=== PATIENT | female | born 1960 | race Caucasian/White ===

== ENCOUNTER 2017-05-26 15:33 | Emergency (ER) | payer OTHER, SELFPAY ==
[2017-05-26 15:50] VITALS: BP 140/81; PULSE 83; RESP 20; TEMP 36.6; O2SAT 98; BMI 22.6
--- NOTE | 2017-05-26 16:18 | HMH.EDUTC ---
[facility] – [place] Disposition Clinical Impression: Strain of left hip Qualifiers: Encounter type: initial encounter Qualified Code(s): S76.012A - Strain of muscle, fascia and tendon of left hip, initial encounter Fall from slipping on wet surface Qualifiers: Encounter type: initial encounter Qualified Code(s): W01.0XXA - Fall on same level from slipping, tripping and stumbling without subsequent striking against object, initial encounter Disposition: Home, Self-Care Condition on Discharge: Good Instructions: How To Perform RICE (Rest, Ice, Compress, Elevate) Additional Instructions: Follow Restrictions listed on workman's comp form Naproxen as needed for pain. No additional ibuprofen, motrin, aleve, naproxen, advil with that amount of naproxen. You can take tylenol if your primary care has said it is ok. Hip Strains A hip strain occurs when one of the muscles supporting the hip joint is stretched beyond its limit or torn. Strains may be mild, moderate, or severe, depending on the extent of the injury. A severe strain can limit your ability to move your hip. Anyone can experience a hip strain just doing everyday tasks, but strains most often occur during sports activities. Although many hip strains improve with simple home treatment, severe strains may require physical therapy or other medical treatment. Description The large bones that make up the hip jointthe femur (thighbone) and the pelvisserve as anchors for several muscles. Some of these muscles move across the abdomen or the buttocks (hip flexors, gluteals). Others move down the thigh to the knee (abductors, adductors, quadriceps, hamstrings). The lower abdominal muscles and hip flexor muscles are often involved in a hip strain. Reproduced from JUVENAL Browne, ed: Essentials of Musculoskeletal Care, ed 4. [place], [place], [employer], 2010. In a hip strain, muscles and tendons may be injured. Tendons are the tough, fibrous tissues that connect muscles to bones. Hip strains frequently occur near the point where the muscle joins the connective tissue of the tendon. The strain may be a simple stretch in your muscle or tendon, or it may be a partial or complete tear of muscle fibers or of the muscle and tendon combination. Once the muscle is injured, it becomes vulnerable to reinjury. Repeated strains in muscles about the hip and pelvis may be associated with athletic pubalgia (also called sports hernia). A sports hernia is a strain or tear of any soft tissue (muscle, tendon, ligament) in the lower abdomen or groin area. This condition is discussed in Sports Hernia (Athletic Pubalgia). The lower abdominal muscles and hip flexor muscles are often involved in a hip strain. Reproduced from JUVENAL Browne, ed: Essentials of Musculoskeletal Care, ed 4. [place], [employer], 2010. Cause A hip strain can be an acute injurymeaning that it occurs suddenly, such as from a fall or a direct blow during contact sports. Hip strains are also caused by overusewhen the muscle or tendon has slowly become weakened over time by repetitive movements. Factors that put you at greater risk for a hip strain include: Prior injury in the same area Muscle tightness Failure to warm up properly before exercising Attempting to do too much, too quickly, when you exercise Symptoms A muscle strain causes pain and tenderness in the injured area. Other symptoms may include: Increased pain when you use the muscle Swelling Limited range of motion Muscle weakness Home Remedies Many hip strains will improve with simple home treatment. Mild strains can be treated with the RICE protocol. RICE stands for rest, ice, compression, and elevation. Rest. Avoid activities that put weight on the hip for the first few days after the injury. Ice. Apply ice immediately after the injury to keep the swelling down. Use cold packs for 20 minutes at a time, several times a day. Do not apply ice directly o
--- NOTE | 2017-05-26 16:25 | XR_ITS ---
EXAM: XR lumbar spine 2-3V HISTORY: Post traumatic pain ITS.REASON: fall ORDERING PHYSICIAN: Inga Victoria PATIENT AGE: 56 years COMPARISON: None FINDINGS: Normal alignment. No fracture or dislocation. No lytic or blastic change. No significant degenerative change. The disc spaces are preserved. IMPRESSION: No acute finding
--- NOTE | 2017-05-26 16:25 | XR_ITS ---
XR sacrum coccyx min 2V CLINICAL INDICATION: Posttraumatic pain ITS.REASON: fall ORDERING PHYSICIAN: Inga Victoria PATIENT AGE: 56 years COMPARISON: None FINDINGS: No fracture or dislocation IMPRESSION: Negative sacrum/coccyx
--- NOTE | 2017-05-26 16:25 | XR_ITS ---
XR hip LT 2-3V w/pelvis HISTORY: Posttraumatic pain ITS.REASON: fall ORDERING PHYSICIAN: Inga Victoria PATIENT AGE: 56 years COMPARISON: None FINDINGS: No fracture or dislocation is evident. There are mild osteoarthritic changes of the hips with osteophyte formation at the acetabulum. IMPRESSION: No acute fracture, mild osteoarthritis
--- NOTE | 2017-05-26 16:25 | ED_ITS ---
[facility] [place] Clinical Impression: Strain of left hip Qualifiers: Encounter type: initial encounter Qualified Code(s): S76.012A - Strain of muscle, fascia and tendon of left hip, initial encounter Fall from slipping on wet surface Qualifiers: Encounter type: initial encounter Qualified Code(s): W01.0XXA - Fall on same level from slipping, tripping and stumbling without subsequent striking against object, initial encounter Disposition: Home, Self-Care Condition on Discharge: Good Instructions: How To Perform RICE (Rest, Ice, Compress, Elevate) Additional Instructions: Follow Restrictions listed on workman's comp form Naproxen as needed for pain. No additional ibuprofen, motrin, aleve, naproxen, advil with that amount of naproxen. You can take tylenol if your primary care has said it is ok. Hip Strains A hip strain occurs when one of the muscles supporting the hip joint is stretched beyond its limit or torn. Strains may be mild, moderate, or severe, depending on the extent of the injury. A severe strain can limit your ability to move your hip. Anyone can experience a hip strain just doing everyday tasks, but strains most often occur during sports activities. Although many hip strains improve with simple home treatment, severe strains may require physical therapy or other medical treatment. Description The large bones that make up the hip joint?the femur (thighbone) and the pelvis? serve as anchors for several muscles. Some of these muscles move across the abdomen or the buttocks (hip flexors, gluteals). Others move down the thigh to the knee (abductors, adductors, quadriceps, hamstrings). The lower abdominal muscles and hip flexor muscles are often involved in a hip strain. Reproduced from JUVENAL Browne, ed: Essentials of Musculoskeletal Care, ed 4. [place], [place], [employer], 2010. In a hip strain, muscles and tendons may be injured. Tendons are the tough, fibrous tissues that connect muscles to bones. Hip strains frequently occur near the point where the muscle joins the connective tissue of the tendon. The strain may be a simple stretch in your muscle or tendon, or it may be a partial or complete tear of muscle fibers or of the muscle and tendon combination. Once the muscle is injured, it becomes vulnerable to reinjury. Repeated strains in muscles about the hip and pelvis may be associated with athletic pubalgia ( also called sports hernia). A sports hernia is a strain or tear of any soft tissue (muscle, tendon, ligament) in the lower abdomen or groin area. This condition is discussed in Sports Hernia (Athletic Pubalgia). The lower abdominal muscles and hip flexor muscles are often involved in a hip strain. Reproduced from JUVENAL Browne, ed: Essentials of Musculoskeletal Care, ed 4. [place], [place], [employer], 2010. Cause A hip strain can be an acute injury?meaning that it occurs suddenly, such as from a fall or a direct blow during contact sports. Hip strains are also caused by overuse?when the muscle or tendon has slowly become weakened over time by repetitive movements. Factors that put you at greater risk for a hip strain include: * Prior injury in the same area * Muscle tightness * Failure to warm up properly before exercising * Attempting to do too much, too quickly, when you exercise Symptoms A muscle strain causes pain and tenderness in the injured area. Other symptoms may include: * Increased pain when you use the muscle * Swelling * Limited range of motion * Muscle weakness Home Remedies Many hip strains will improve with simple home treatment. Mild strains can be treated with the MARIBELL turnero
== END 2017-05-26 18:19 | disposition home or self-care (01) ==
PROVIDERS: Emergency Provider Nurse Practitioner Family; Family Provider Family Medicine; PCP Family Medicine
DX: S76.012A Strain of muscle, fascia and tendon of left hip, initial encounter (principal); W01.0XXA Fall on same level from slipping, tripping and stumbling without subsequent striking against object, initial encounter; Y92.69 Other specified industrial and construction area as the place of occurrence of the external cause; Y99.0 Civilian activity done for income or pay
CPT/HCPCS: 72100; 72220; 73502; 99202; 99282

== ENCOUNTER → 2018-03-28 09:23 | Outpatient (POV) | payer MEDICARE, SELFPAY | PROVIDERS: Visit Provider Nurse Practitioner Acute Care | DX: Z00.00 Encounter for general adult medical examination without abnormal findings (principal) ==

== ENCOUNTER 2018-12-12 15:06 | Outpatient (RCR) | payer MEDICARE, SELFPAY | END 2019-01-30 13:53 | disposition home or self-care (01) | LOC: PT 15:06 | DX: C34.90 Malignant neoplasm of unspecified part of unspecified bronchus or lung (principal); J44.9 Chronic obstructive pulmonary disease, unspecified; R06.02 Shortness of breath | CPT/HCPCS: G0237; G0238; G0239 ==

== ENCOUNTER → 2019-01-27 11:28 | Outpatient (CLI) | payer MEDICARE, SELFPAY ==
--- NOTE | 2019-01-27 11:39 | XR_ITS ---
PROCEDURE: XR SACROILIAC JOINT BI MIN 3V CLINICAL INDICATION: HIP PAIN COMPARISON: No exams were available for comparison FINDINGS: An AP view of the pelvis and oblique views of both SI joints were obtained. Both SI joints appear normal. IMPRESSION: No acute findings. Dictated by: Dr. Deshawn Clemons MD 01/27/2019 13:[address] Deshawn Clemons MD in [place] 01/27/2019 13:33
--- NOTE | 2019-01-27 11:39 | XR_ITS ---
PROCEDURE: XR HIP RT 2-3V W/PELVIS CLINICAL INDICATION: RT HIP PAIN COMPARISON: HIPCMLT XR hip LT 2-3V w/pelvis from 05/26/2017 FINDINGS: No fracture or dislocation is evident. No significant degenerative change. No lytic or blastic change. Unremarkable soft tissues. The SI joints appear normal. IMPRESSION: No acute findings. Dictated by: Dr. Deshawn Clemons MD 01/27/2019 13:[address] Deshawn Clemons MD in [place] 01/27/2019 13:30
--- NOTE | 2019-01-27 11:39 | XR_ITS ---
PROCEDURE: XR MULTIPLE SPINE 4-5V CLINICAL INDICATION: THORACIC BACK PAIN COMPARISON: No exams were available for comparison FINDINGS: AP and lateral films of the thoracic spine show normal curvature and alignment. All thoracic vertebrae appear intact and disc spaces are well maintained. The pedicles are intact and there is no paraspinal mass. AP and lateral films lumbar spine show slightly accentuated lordotic curvature. There is very minor levo scoliotic curvature between T11 and L5. The lumbar vertebrae appear intact and disc spaces are normal throughout. The SI joints are normal. IMPRESSION: No acute findings. Dictated by: Dr. Deshawn Clemons MD 01/27/2019 13:[address] Deshawn Clemons MD in [place] 01/27/2019 13:33
--- NOTE | 2019-01-27 11:39 | XR_ITS ---
PROCEDURE: XR HIP LT 2-3V W/PELVIS CLINICAL INDICATION: LT HIP PAIN COMPARISON: HIPCMLT XR hip LT 2-3V w/pelvis from 05/26/2017 FINDINGS: No fracture or dislocation is evident. No significant degenerative change. No lytic or blastic change. Unremarkable soft tissues. The SI joints and symphysis pubis appear normal. IMPRESSION: No acute findings. Dictated by: Dr. Deshawn Clemons MD 01/27/2019 13:[address] Deshawn Clemons MD in [place] 01/27/2019 13:31
== END ==
PROVIDERS: PCP Nurse Practitioner Family; Visit Provider Nurse Practitioner Family
DX: M25.552 Pain in left hip (principal); M25.551 Pain in right hip; M54.6 Pain in thoracic spine; M54.5 Low back pain
CPT/HCPCS: 72083; 72202; 73502

== ENCOUNTER → 2019-03-06 14:52 | Outpatient (POV) | payer MEDICARE, SELFPAY ==
[2019-03-06 15:09] VITALS: BP 126/69; PULSE 95; RESP 18; O2SAT 99; BMI 24.7
--- NOTE | 2019-03-07 08:24 | HMH.PMCON ---
Assessment and Plan (1) Fibromyalgia Current visit: Yes Status: Chronic Category: Medical Code(s): M79.7 - Fibromyalgia (2) Sacroiliitis Current visit: Yes Status: Chronic Category: Medical Code(s): M46.1 - Sacroiliitis, not elsewhere classified (3) Back pain Current visit: Yes Status: Chronic Category: Medical Code(s): M54.9 - Dorsalgia, unspecified - Assessment and plan all Dx Assessment and Plan for all problems:: Patient and I discussed utilizing anti-inflammatories with stomach protectant. She is interested in this. Patient and I also discussed an SI joint belt. Also set her up for bilateral SI joint injections. I do believe given her symptomology that this would be beneficial for her. Patient is continuing her home stretching program and continuing to try to stay as active as possible. Patient is failed over 6 months of conservative treatments. Dr. Teresa has reviewed this note and agrees with this plan of care. This note was dictated using voice recognition software and may contain errors or omissions HPI - Data of Consult Consult date: 03/06/19 Requesting Physician: Kay Hemphill APRN Primary Care Provider: Bruno Kline - Consult Narrative Reason for consult: Generalized pain, low back pain History of present illness: Ms. Combs is a 58 year old female who presents today for consultation in regards to her pain. Patient rates her pain today a 7 out of 10. She states the pain is achy in nature. Patient has had pain for many years. She is been diagnosed with fibromyalgia in the past. She is continuing to try to work a part-time job and she is finding this more more difficult. Today her main pain complaint is her low back radiating into her groin area and down to her knees. Patient and I discussed starting with treatment of this pain and then moving on to work on some of her other pain patient is tried multiple years of medication with no success. She was on anti-inflammatories. Patient developed stomach issues after this. But she stated that it was beneficial for her. She has not had any injective therapy. She is continuing a home stretching program. CC: Kay Hemphill APRN [facility] History I have reviewed the patient's past medical history: Yes Medical History: Reports:: Anxiety, Chronic Obstructive Pulmonary Disease (COPD), Depression Denies:: Cancer, Diabetes Mellitus Type 1, Diabetes Mellitus Type 2, Hypertension, Internal Pacemaker, Lung Disease, MRSA, Seizures *Have you ever received a pneumonia vaccine?: Yes *Have you received a flu vaccine this season?: Yes Other Surgeries: Yes: No Previous Surgery, Hysterectomy-Total, Other. No: Pacemaker Amputation: No Fractures: No - *Social History Smoking Status: Current every day smoker Tobacco Type: cigarettes # Packs/Day (cigarettes): 1 Alcohol Intake: never Substance Use Type: denies use *Occupational Status:: employed Housing: house Household Members: family, none *Travel in the last 8 weeks: None - Psychiatric History Pschychiatric History:: Reports:: Anxiety, Depression Family Hx:: Cancer, Diabetes, Stroke, Hypertension Review of Systems - Review of Systems ROS General: no recent weight change, no fever, no sleep disturbances Respiratory: no cough, no shortness of air, no recurring pulmonary infections Cardiovascular/Peripheral Vascular: No chest pain, No palpitations, no edema, no shortness of breath. Gastrointestinal: no new onset incontinence, normal bowel movements reported Genitourinary: no new onset incontinence Musculoskeletal: Back pain, SI joint pain, generalized pain Psychiatric: normal mood/ affect, Neurological: [denies new onset weakness in extremities], [denies new onset balance issues] Meds Home Medications Medication Instructions Recorded Confirmed Type Alendronate Sodium [Fosamax] 70 mg PO WEEKLY 05/06/18 02/27/19 History Cholecalciferol (Vitamin D3) 2,000 unit PO PHAN
--- NOTE | 2019-03-07 08:27 | P.CONS_ITS ---
Assessment and Plan (1) Fibromyalgia Current visit: Yes Status: Chronic Category: Medical Code(s): M79.7 - Fibromyalgia (2) Sacroiliitis Current visit: Yes Status: Chronic Category: Medical Code(s): M46.1 - Sacroiliitis, not elsewhere classified (3) Back pain Current visit: Yes Status: Chronic Category: Medical Code(s): M54.9 - Dorsalgia, unspecified - Assessment and plan all Dx Assessment and Plan for all problems:: Patient and I discussed utilizing anti-inflammatories with stomach protectant. She is interested in this. Patient and I also discussed an SI joint belt. Also set her up for bilateral SI joint injections. I do believe given her symptomology that this would be beneficial for her. Patient is continuing her home stretching program and continuing to try to stay as active as possible. Patient is failed over 6 months of conservative treatments. Dr. Teresa has reviewed this note and agrees with this plan of care. This note was dictated using voice recognition software and may contain errors or omissions HPI - Data of Consult Consult date: 03/06/19 Requesting Physician: Kay Hemphill APRN Primary Care Provider: Bruno Kline - Consult Narrative Reason for consult: Generalized pain, low back pain History of present illness: Ms. Combs is a 58 year old female who presents today for consultation in regards to her pain. Patient rates her pain today a 7 out of 10. She states the pain is achy in nature. Patient has had pain for many years. She is been diagnosed with fibromyalgia in the past. She is continuing to try to work a part-time job and she is finding this more more difficult. Today her main pain complaint is her low back radiating into her groin area and down to her knees. Patient and I discussed starting with treatment of this pain and then moving on to work on some of her other pain patient is tried multiple years of medication with no success. She was on anti-inflammatories. Patient developed stomach issues after this. But she stated that it was beneficial for her. She has not had any injective therapy. She is continuing a home stretching program. CC: Kay Hemphill APRN [facility] History I have reviewed the patient's past medical history: Yes Medical History: Reports:: Anxiety, Chronic Obstructive Pulmonary Disease (COPD), Depression Denies:: Cancer, Diabetes Mellitus Type 1, Diabetes Mellitus Type 2, Hypertension, Internal Pacemaker, Lung Disease, MRSA, Seizures *Have you ever received a pneumonia vaccine?: Yes *Have you received a flu vaccine this season?: Yes Other Surgeries: Yes: No Previous Surgery, Hysterectomy-Total, Other. No: Pacemaker Amputation: No Fractures: No - *Social History Smoking Status: Current every day smoker Tobacco Type: cigarettes # Packs/Day (cigarettes): 1 Alcohol Intake: never Substance Use Type: denies use *Occupational Status:: employed Housing: house Household Members: family, none *Travel in the last 8 weeks: None - Psychiatric History Pschychiatric History:: Reports:: Anxiety, Depression Family Hx:: Cancer, Diabetes, Stroke, Hypertension Review of Systems - Review of Systems ROS General: no recent weight change, no fever, no sleep disturbances Respiratory: no cough, no shortness of air, no recurring pulmonary infections Cardiovascular/Peripheral Vascular: No chest pain, No palpitations, no edema, no shortness of breath. Gastrointestinal: no new onset incontinence, normal bowel movements reported Genitourinary: no new onset incontinence Muscul
== END ==
PROVIDERS: PCP Family Medicine; Visit Provider Clinical Nurse Specialist Family Health
DX: M79.7 Fibromyalgia (principal); M46.1 Sacroiliitis, not elsewhere classified; M54.9 Dorsalgia, unspecified
CPT/HCPCS: 99202

== ENCOUNTER 2019-03-30 15:00 | Outpatient (RCR) | payer MEDICARE, SELFPAY | END 2019-03-30 15:05 | disposition home or self-care (01) | LOC: PT 15:00 | PROVIDERS: PCP Nurse Practitioner Family; Visit Provider Nurse Practitioner Family | DX: M54.5 Low back pain (principal); M25.552 Pain in left hip; M25.551 Pain in right hip | CPT/HCPCS: 97010; 97012; 97014; 97033; 97110; 97163; 97164; G0283 ==

== ENCOUNTER → 2019-04-24 15:05 | Outpatient (POV) | payer MEDICARE, SELFPAY ==
[2019-04-24 15:43] VITALS: BP 101/78; PULSE 91; RESP 18; O2SAT 99; BMI 25.4
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
== END ==
PROVIDERS: PCP Nurse Practitioner Family; Visit Provider Clinical Nurse Specialist Family Health
DX: M54.12 Radiculopathy, cervical region (principal); M54.14 Radiculopathy, thoracic region; M54.16 Radiculopathy, lumbar region
CPT/HCPCS: 99212